=== PATIENT | male | born 1935 | race Caucasian/White ===

== ENCOUNTER 2018-05-04 11:08 | Inpatient (IN) | payer OTHER ==
[~2018-05-04] VITALS: Ht 160 cm; Wt 85.3 kg
[~2018-05-04 11:08] MED LIST: CARV3.12 PO; DABI150C PO; DIGO0.122 PO; DOCU-299 PO; FURO10SO IVP; MAG400 PO; POTA20TE62 PO
--- NOTE | 2018-05-04 11:17 | NUR ---
PATIENT AMBULATED TO BED 9 AT THIS TIME.
[2018-05-04 11:20] VITALS: BP 103/49
--- NOTE | 2018-05-04 11:29 | NUR ---
PATIENT PRESENTS TO ED WITH accompanied by spouse c/o lower back pain coughing spells moist productive cough fatigue headache . DENIES N/V/D; SKIN IS PINK/WARM/DRY; AAOX4 WITH EVEN AND STEADY GAIT; LUNGS CLEAR BL; HR EVEN AND REGULAR;PATIENT STATES PAIN OF 8/10 AT THIS TIME; VSS; PATIENT POSITIONED FOR COMFORT; HOB ELEVATED; BEDRAILS UP X2; BED DOWN. ER MD MADE AWARE OF PT STATUS.
[2018-05-04] MEDS ORDERED: NACL 0.9% 500 ML IV SCH (11:47)
--- NOTE | 2018-05-04 11:55 | NUR ---
X-Ray at bedside.
[2018-05-04 12:02] LABS: APPEARANCE,URINE HAZY (CLEAR); BILIRUBIN,URINE NEGATIVE (NEGATIVE); BLOOD, URINE 3+ (NEGATIVE); COLOR,URINE ORANGE (YELLOW); LEUKOCYTE ESTERASE ,URINE 3+ (NEGATIVE); NITRITE, URINE POSITIVE (NEGATIVE); UGLUCOSE TRACE (NEGATIVE)
--- NOTE | 2018-05-04 12:06 | NUR ---
influenza swab collected
[2018-05-04 12:10] LABS: WBC,URINE 16-25 (MOD) /HPF (0-5)
[2018-05-04 12:18] LABS: BASOPHILS % (AUTO) 0.6 % (0.0-2.0); EOSINOPHILS % (AUTO) 0.6 % (0.0-4.0); HEMATOCRIT 40.7 % (36-52); HEMOGLOBIN 13.3 g/dL (12.0-18.0); LYMPHOCYTES # (AUTO) 0.5 K/uL (2.0-11.5); LYMPHOCYTES % (AUTO) 8.4 % (20.5-51.1); MEAN CORPUSCULAR HEMOGLOBIN 29 pg (27-31); MEAN CORPUSCULAR HGB CONC 33 g/dL (33-37); MEAN CORPUSCULAR VOLUME 89.3 fL (80-94); MONOCYTES # (AUTO) 0.7 K/uL (0.8-1.0); MONOCYTES % (AUTO) 10.6 % (1.7-9.3); NEUTROPHILS % (AUTO) 79.8 % (42.2-75.2); PLATELET COUNT (AUTO) 106 K/uL (140-450); RED BLOOD CELL COUNT(AUTO) 4.56 MIL/uL (4.20-6.10); RED CELL DISTRIBUTION WIDTH 13.7 % (11.6-13.7); WHITE BLOOD COUNT (AUTO) 6.3 K/uL (4.8-10.8)
[2018-05-04 12:31] LABS: PROTHROMBIN TIME 10.4 secs (10.8-13.4)
[2018-05-04 12:34] LABS: ALBUMIN 2.8 g/dL (3.4-5.0); ANION GAP 9.9 (8-16); ASPARTATE AMINOTRANSFERASE 23 U/L (15-37); CARBON DIOXIDE 27.6 mmol/L (21-32); CHLORIDE 102 mmol/L (98-107); CREATININE 1.4 mg/dL (0.7-1.3); GLUCOSE 111 mg/dL (74-106); POTASSIUM 3.5 mmol/L (3.5-5.1); SODIUM SERUM 136 mmol/L (136-145); TOTAL BILIRUBIN 0.9 mg/dL (0.0-1.0); UREA NITROGEN, BLOOD 28 mg/dL (7-18)
[2018-05-04] MEDS ORDERED: NACL 0.9% 500 ML IV ONE (13:20)
[2018-05-04] MEDS ORDERED: cefTRIAXone 1,000 MG VIAL ONE (13:41)
[2018-05-04] MEDS ORDERED: ALBUTEROL 0.083% 2.5 MG/3 ML NEBU INH ONE ×2 (15:35→17:10)
[2018-05-04] MEDS ORDERED: IPRATROPIUM 0.02% 0.5 MG/2.5 ML NEBU INH ONE (15:35)
[2018-05-04] MEDS ORDERED: methylPREDNISolone SS 125 MG/2 ML VIAL IVP ONE (15:35)
[2018-05-04] MEDS ORDERED: METOPROLOL 5 MG/5 ML VIAL IVP ONE ×2 (16:10→16:55)
[2018-05-04] MEDS ORDERED: METOPROLOL 5 MG/5 ML VIAL ONE (16:21)
[2018-05-04] MEDS ORDERED: METOPROLOL 50 MG TAB PO ONE (16:55)
[2018-05-04] MEDS ORDERED: DOCUSATE SODIUM 100 MG GELCAP PO PRN (17:30)
[2018-05-04] MEDS ORDERED: DILTIAZEM 25 MG/5 ML VIAL IVP PRN (17:30)
[2018-05-04] MEDS ORDERED: HYDROcodone/APAP 5/325 MG 1 TAB TAB PO PRN (17:30)
[2018-05-04] MEDS ORDERED: ONDANSETRON 4 MG/2 ML VIAL IM/IVP PRN (17:30)
[2018-05-04] MEDS ORDERED: ACETAMINOPHEN 325 MG TAB PO PRN (17:30)
--- NOTE | 2018-05-04 17:40 | NUR ---
2ND METOPROLOL HELD 2 TO CURRENT B/P 117/59 HR 117; BREATHING TX COMPLETED <15mins. Addendum: 05/04/18 at 1746 by MEDGIN 2nd ivp metoprolol held due to current vitals; notified
--- NOTE | 2018-05-04 18:15 | NUR ---
RECEIVED REPORT FROM PM NURSE FROM ER NURSE AT BEDSIDE. PT ADMITTED WITH DX OF AFIB, HTN. HAS LEFT LEG WOUND. VS NOTED T 99.4. O2 95% ON O2 2LPM. HR 58, RR 20. BP 122/66. PT DENIES ANY PAIN AT THIS TIME. MRSA NARES SWAB COLLECTED AND SENT TO LAB. PT IS AMBULATORY TO RESTROOM. PT HAS INTERMITTENT COUGH. MD AT BED-SIDE , TALKING TO MD. CALL LIGHT WITHIN REACH. INFORMED TO USE CALL LIGHT FOR ANY HELP. WILL CONTINUE TO MONITOR PT.
[2018-05-04 18:32] LABS: MAGNESIUM 1.2 mg/dL (1.8-2.4); PHOSPHORUS 2.1 mg/dL (2.5-4.9); THYROID STIMULATING HORMONE 2.42 uIU/mL (0.34-3.74)
[2018-05-04 19:12] LABS: BARBITURATE, URINE NEG. ng/ml (NEG <=200); BENZODIAZEPINE, URINE NEG. ng/mL (NEG <=200); CANNABINOID, URINE NEG. ng/mL (NEG <=50); COCAINE, URINE NEG. ng/mL (NEG <=300); OPIATE, URINE NEG. ng/mL (NEG <=2000); PHENCYCLIDINE SCREEN,URINE NEG. ng/mL (NEG <=25)
--- NOTE | 2018-05-04 19:35 | NUR ---
ENDORSED PT TO PM NURSE AT BEDSIDE. PT IN STABLE CONDITION.
--- NOTE | 2018-05-04 19:36 | NUR ---
REPORT RECEIVED FROM AM NURSE AT BEDSIDE. PT IN STABLE CONDITION. AAOX4. INTRODUCED SELF TO PT. PT IS YI SPEAKING ONLY. BOARD UPDATED. NO COMPLAINTS OF PAIN. NO SOB. ON 2L O2 VIA NC. AFEBRILE. IV SITE L AC 20G RUNNING NS@60ML/HR PATENT AND INTACT. SKIN WARM, DRY, AND NOT INTACT WITH 2 LEFT LEG ULCERS. BED LOCKED IN LOW POSITION. CALL BIRCH WITHIN REACH. SAFETY PRECAUTIONS IN PLACE. ALL NEEDS MET AT THIS TIME.
[2018-05-04] MEDS: NACL 0.9% 1,000 ML IV SCH (19:53)
[2018-05-04 20:00] VITALS: BP 115/57
[2018-05-04] MEDS ORDERED: SODIUM PHOS / POTASSIUM PHOS 1 PKT PDR PO SCH (20:00)
--- NOTE | 2018-05-04 20:09 | NUR ---
NEUTROPHOS GIVEN PO. PT TOLERATED WELL.
--- NOTE | 2018-05-04 20:56 | NUR ---
HEPARIN GIVEN SUBQ. PT TOLERATED WELL. MAG HUNG FOR MAG LEVEL OF 1.2.
[2018-05-04] MEDS ORDERED: MAG SULF 2000 MG/WATER PREMIX 50 ML IV ONE (21:00)
--- NOTE | 2018-05-04 23:10 | NUR ---
PT SLEEPING BUT AROUSABLE. VS STABLE. NO S/S OF DISTRESS NOTED. WILL CONTINUE TO MONITOR.
[2018-05-04] MEDS ORDERED: PNEUMOCOCCAL VACCINE 23 MCG/0.5 ML VIAL IMVAC SCH (23:20)
[2018-05-04] MEDS ORDERED: INFLUENZA VIRUS VACCINE QUAD 0.5 ML SYR IMVAC PRN (23:20)
[2018-05-05] VITALS: BP 110/60
--- NOTE | 2018-05-05 01:15 | NUR ---
PT SLEEPING COMFORTABLY BUT AROUSABLE. NO S/S OF DISTRESS NOTED. BREATHING EVEN, UNLABORED, AND WNL. WILL CONTINUE TO MONITOR.
[2018-05-05] MEDS: NACL 0.9% 1,000 ML IV SCH (03:00)
--- NOTE | 2018-05-05 03:45 | NUR ---
PT SLEEPING COMFORTABLY SUPINE BUT AROUSABLE. NO S/S OF DISTRESS NOTED. BREATHING EVEN, UNLABORED, AND WNL. WILL CONTINUE TO MONITOR.
[2018-05-05 04:00] VITALS: BP 114/59
--- NOTE | 2018-05-05 05:20 | NUR ---
PT AWAKE IN BED WATCHING TV. BREATHING EVEN, UNLABORED, AND WNL. WILL CONTINUE TO MONITOR. NO S/S OF DISTRESS NOTED.
[2018-05-05 06:13] LABS: BASOPHILS % (AUTO) 0.1 % (0.0-2.0); HEMATOCRIT 39.5 % (36-52); HEMOGLOBIN 13.1 g/dL (12.0-18.0); LYMPHOCYTES # (AUTO) 0.4 K/uL (2.0-11.5); LYMPHOCYTES % (AUTO) 9.6 % (20.5-51.1); MEAN CORPUSCULAR HEMOGLOBIN 30 pg (27-31); MEAN CORPUSCULAR HGB CONC 33 g/dL (33-37); MEAN CORPUSCULAR VOLUME 89.5 fL (80-94); MONOCYTES # (AUTO) 0.2 K/uL (0.8-1.0); MONOCYTES % (AUTO) 4.6 % (1.7-9.3); NEUTROPHILS # (AUTO) 3.8 K/uL (1.8-7.7); NEUTROPHILS % (AUTO) 85.7 % (42.2-75.2); PLATELET COUNT (AUTO) 111 K/uL (140-450); RED BLOOD CELL COUNT(AUTO) 4.42 MIL/uL (4.20-6.10); RED CELL DISTRIBUTION WIDTH 13.8 % (11.6-13.7); WHITE BLOOD COUNT (AUTO) 4.5 K/uL (4.8-10.8)
[2018-05-05 06:28] LABS: CARBON DIOXIDE 28.9 mmol/L (21-32); CHLORIDE 105 mmol/L (98-107); CREATININE 1.1 mg/dL (0.7-1.3); GLUCOSE 152 mg/dL (74-106); POTASSIUM 3.9 mmol/L (3.5-5.1); SODIUM SERUM 139 mmol/L (136-145); UREA NITROGEN, BLOOD 23 mg/dL (7-18)
[2018-05-05 06:40] LABS: MAGNESIUM 2.5 mg/dL (1.8-2.4); PHOSPHORUS 3.5 mg/dL (2.5-4.9)
--- NOTE | 2018-05-05 07:30 | NUR ---
RECEIVED PATIENT REPORT AT BEDSIDE. PATIENT AWAKE,ALERT AND ORIENTED. NO S/S OF DISTRESS. PT ON TELE MONITORING. FALL PRECAUTIONS IN PLACE. WILL CONTINUE TO MONITOR
--- NOTE | 2018-05-05 07:35 | NUR ---
REPORT GIVEN TO AM NURSE AT BEDSIDE. PT IN STABLE CONDITION.
[2018-05-05 08:00] VITALS: BP 113/68
--- NOTE | 2018-05-05 08:24 | NUR ---
PATIENT HAS BEEN SCREENED AND CATEGORIZED HIGH NUTRITION RISK. PATIENT WILL BE SEEN WITHIN 1-2 DAYS OF ADMISSION. 05/05/18-05/06/[address]
[2018-05-05] MEDS ORDERED: METOPROLOL 25 MG TAB PO SCH (09:00)
[2018-05-05] MEDS: LACTOBACILLUS RHAMNOSUS GG 1 EACH CAP PO SCH (09:55)
--- NOTE | 2018-05-05 10:15 | NUR ---
WOUND CARE EVALUATION NOTE: REASON FOR EVALUATION: LEFT LOWER EXTREMITY WOUNDS PT. ADMITTED TO [facility] WITH CHRONIC OPEN WOUND TO LLE. PT IS AWAKE. SKIN IS WARM AND DRY, BLE FEW HAIR GROWTH, NO EDEMA. DORSAL PEDAL PULSES PRESENT AND NORMAL. CAPILLARY REFILLED < 2 SEC. X 10 TOES.PLAN OF CARE DISCUSSED WITH PRIMARY RN. AND PT. PT VERBALIZES UNDERSTANDING INTEGUMENTARY: -BLE XEROSIS -LLE VENOUS STASIS ULCER MULTIPLE FULL THICKNESS SKIN LOSS WITH LARGEST 3.5X3X0.5CM WOUND BED 100% GRANULATING TISSUE, OTTONIEL-WOUNDS WITH MULTIPLE PARTIAL THICKNESS SKIN LOSS SMALL AMOUNT SEROUS DRAINAGE, NO ERYTHEMA, NO ODOR RECOMMENDATIONS: -APPLY HYDRAGUARD TO BILATERAL LOWER EXTREMITIES BIDWC AND LEAVE IT OPEN TO AIR -CLEANSE LLE WOUNDS WITH WOUND CLEANSING SOLUTION AND APPLY XEROFORM DRESSING AND 4X4 ,WRAP WITH KERLIX ROLLS AND SECURE WITH TAPE QM-W-F PRN IF SOILING -OFFLOAD BILATERAL HEELS BY PLACING PILLOWS UNDER CALVES UNLESS OTHERWISE CONTRAINDICATED -PRESSURE REDISTRIBUTION SURFACE THERAPY -TURN AND REPOSITION Q2H, OFFLOAD SACRALCOCCYX AND BUTTOCKS BY TURNING RIGHT AND LEFT -CONTINUE TO FOLLOW RD RECOMMENDATIONS -PLEASE DISCHARGE PT WITH 2 WEEKS WOUND CARES SUPPLY AND PT. TO FOLLOW UP WITH PRIMARY CARE PROVIDER IN 2 WEEKS ALL ABOVE RECOMMENDATIONS DISCUSSED WITH PRIMARY RN. PLEASE CONTACT WOUND CARE NURSE FOR ANY QUESTION AND CHANGE OF WOUND CONDITION.
[2018-05-05 12:00] VITALS: BP 108/54
--- NOTE | 2018-05-05 14:48 | NUR ---
ECHO AT BEDSIDE Addendum: 05/05/18 at 1449 by Bin Rubio RN CORRECT TIME: 1400
--- NOTE | 2018-05-05 15:34 | NUR ---
05/05/18 RD INITIAL ASSESSMENT COMPLETED PLEASE REFER TO NUTRITION ASSESSMENT UNDER CARE ACTIVITY FOR ESTIMATED NUTRITIONAL NEEDS. 1. CONTINUE CARDIAC DIET TOLERATED 2. RECOMMEND MULTIVITAMIN QD WITH VITAMIN C [address] PROVIDED NUTRITION EDUCATION ON HEART HEALTHY DIET 4. RD TO FOLLOW-UP 3-5 DAYS, MODERATE RISK ALLAN PFEIFFER RD
[2018-05-05 16:00] VITALS: BP 119/53
--- NOTE | 2018-05-05 19:30 | NUR ---
PATIENT REPORT GIVEN AT BEDSIDE. PATIENT ENDORSED IN STABLE CONDITION
--- NOTE | 2018-05-05 19:31 | NUR ---
RECEIVED REPORT FROM DAY SHIFT NURSE AMIRA-RN AT BEDSIDE. PT AOX4- RWANDAN SPEAKING, ON ROOM AIR WITH LEFT AC #20G RUNNING NS @60ML/HR. PT RESTING IN BED NO S/S OF RESPIRATORY DISTRESS OR DISCOMFORT NOTED AT THIS TIME. DISCUSSED PLAN OF CARE AND PT VERBALIZED UNDERSTANDING. BED IN LOWEST POSITION, BED BREAKS ON, BOTH SIDE RAILS UP AND FALL PRECAUTIONS IN PLACE. BEDSIDE TABLE AND CALL LIGHT ARE WITHIN REACH. WILL CONTINUE TO MONITOR.
[2018-05-05 20:00] VITALS: BP 101/55
--- NOTE | 2018-05-05 20:00 | NUR ---
VITAL SIGNS TAKEN AND TOLERATED WELL. LOW BP NOTED 101/55. NO S/S OF RESPIRATORY DISTRESS OR DISCOMFORT NOTED AT THIS TIME. WILL CONTINUE TO MONITOR.
--- NOTE | 2018-05-05 21:38 | NUR ---
SCHEDULED MEDICATION HEPARIN GIVEN AND TOLERATED WELL. LOPRESSOR NOT GIVEN DUE TO LOW BP. NO S/S OF RESPIRATORY DISTRESS OR DISCOMFORT NOTED AT THIS TIME. WILL CONTINUE TO MONITOR.
--- NOTE | 2018-05-05 23:00 | NUR ---
PT SLEEPING IN BED. NO S/S OF RESPIRATORY DISTRESS OR DISCOMFORT NOTED AT THIS TIME. WILL CONTINUE TO MONITOR.
[2018-05-06] VITALS: BP 127/53
--- NOTE | 2018-05-06 | NUR ---
VITAL SIGNS TAKEN AND TOLERATED WELL. NO S/S OF RESPIRATORY DISTRESS OR DISCOMFORT NOTED AT THIS TIME. WILL CONTINUE TO MONITOR.
--- NOTE | 2018-05-06 02:00 | NUR ---
PT RESTING IN BED. NO S/S OF RESPIRATORY DISTRESS OR DISCOMFORT NOTED AT THIS TIME. WILL CONTINUE TO MONITOR.
[2018-05-06] MEDS: NACL 0.9% 1,000 ML IV SCH (02:43)
[2018-05-06 04:00] VITALS: BP 123/78
--- NOTE | 2018-05-06 04:00 | NUR ---
VITAL SIGNS TAKEN AND TOLERATED WELL. NO S/S OF RESPIRATORY DISTRESS OR DISCOMFORT NOTED AT THIS TIME. WILL CONTINUE TO MONITOR.
--- NOTE | 2018-05-06 06:00 | NUR ---
PT RESTING IN BED. NO S/S OF RESPIRATORY DISTRESS OR DISCOMFORT NOTED AT THIS TIME. WILL CONTINUE TO MONITOR.
[2018-05-06] MEDS ORDERED: APIX2.5 PO (06:13)
[2018-05-06] MEDS ORDERED: METO50TE2 PO (06:13)
[2018-05-06 06:55] LABS: BASOPHILS % (AUTO) 0.2 % (0.0-2.0); EOSINOPHILS # (AUTO) 0.1 K/uL (0-0.4); HEMATOCRIT 39.8 % (36-52); HEMOGLOBIN 12.9 g/dL (12.0-18.0); LYMPHOCYTES # (AUTO) 1.2 K/uL (2.0-11.5); LYMPHOCYTES % (AUTO) 11.1 % (20.5-51.1); MEAN CORPUSCULAR HEMOGLOBIN 29 pg (27-31); MEAN CORPUSCULAR HGB CONC 33 g/dL (33-37); MEAN CORPUSCULAR VOLUME 89.5 fL (80-94); MONOCYTES # (AUTO) 1.4 K/uL (0.8-1.0); MONOCYTES % (AUTO) 12.8 % (1.7-9.3); NEUTROPHILS # (AUTO) 8.1 K/uL (1.8-7.7); NEUTROPHILS % (AUTO) 74.9 % (42.2-75.2); PLATELET COUNT (AUTO) 128 K/uL (140-450); RED BLOOD CELL COUNT(AUTO) 4.44 MIL/uL (4.20-6.10); RED CELL DISTRIBUTION WIDTH 13.9 % (11.6-13.7); WHITE BLOOD COUNT (AUTO) 10.9 K/uL (4.8-10.8)
--- NOTE | 2018-05-06 07:20 | NUR ---
RECEIVED REPORT FROM PIPE FITTER WELDING NURSE RN AT BEDSIDE. PT AAOX4, FAROESE SPEAKING, NO S/S OF ACUTE DISTRESS ON ROOM AIR. IV CATH TO LEFT AC #20G RUNNING NS AT 60ML/HR, PATENT AND ASYMPTOMATIC. DISCUSSED PLAN OF CARE AND PT VERBALIZED UNDERSTANDING. DRESSING TO LEFT LEG DRY AND INTACT. BED IN LOWEST POSITION, BED BREAKS ON, BOTH SIDE RAILS UP. BEDSIDE TABLE AND CALL LIGHT ARE WITHIN REACH. WILL CONTINUE TO MONITOR.
--- NOTE | 2018-05-06 07:29 | NUR ---
ENDORSED PT CARE TO DAY SHIFT NURSE RENAE FOR CONTINUITY OF CARE.
[2018-05-06 07:36] LABS: MAGNESIUM 2.1 mg/dL (1.8-2.4); PHOSPHORUS 2.7 mg/dL (2.5-4.9)
[2018-05-06 08:00] VITALS: BP 126/57
[2018-05-06] MEDS ORDERED: HYDRAGUARD CREAM TP SCH (08:00)
[2018-05-06 08:11] LABS: ANION GAP 9.8 (8-16); CARBON DIOXIDE 29.1 mmol/L (21-32); CHLORIDE 108 mmol/L (98-107); CREATININE 1.1 mg/dL (0.7-1.3); GLUCOSE 91 mg/dL (74-106); POTASSIUM 3.9 mmol/L (3.5-5.1); SODIUM SERUM 143 mmol/L (136-145); UREA NITROGEN, BLOOD 29 mg/dL (7-18)
[2018-05-06] MEDS ORDERED: APIXABAN 2.5 MG TAB PO SCH (09:00)
[2018-05-06] MEDS ORDERED: METOPROLOL SUCCINATE 50 MG TABER PO SCH (09:00)
[2018-05-06] MEDS: LACTOBACILLUS RHAMNOSUS GG 1 EACH CAP PO SCH (09:24)
--- NOTE | 2018-05-06 10:00 | NUR ---
MEDICATIONS GIVEN, KNITTING MACHINE OPERATOR HELPER USED #[id number]. PT VERBALIZED UNDERSTANDING TO THE PURPOSE OF THE MEDICATIONS AND SIDE EFFECTS.
--- NOTE | 2018-05-06 10:50 | NUR ---
MADE DR BRIAN AWARE THAT WBC TODAY IS 10.9 INCREASED FROM 4.5 YESTERDAY. ASKED IF PT WILL STILL BE DC'D TODAY. DR BRIAN SAID YES.
[2018-05-06] MEDS ORDERED: SULF-58 PO (10:52)
[2018-05-06] MEDS ORDERED: BENZ-196 PO (10:52)
[2018-05-06] MEDS ORDERED: LACT10CA1 PO (10:52)
[2018-05-06 12:00] VITALS: BP 123/66
--- NOTE | 2018-05-06 14:30 | NUR ---
PT DISCHARGED PER MD ORDER. DISCHARGE INSTRUCTIONS AND MEDICATION TEACHING GIVEN. OFFERED CARD TABLE ATTENDANT PHONE, PT PREFER TO USE HIS FRIEND ESTELLE TO TRANSLATE. PT LEFT WITH HIS PRESCRIPTION. 4 MORE DAY SUPPLIES OF BACTROBAN AND CHLORHEXIDINE WIPES GIVEN. 1 WK DRESSING SUPPLIES FOR LEFT LEG GIVEN. PT DRESSED HIMSELF. DC'D IV, TIP INTACT, PRESSURE APPLIED. DC'D TELE AND WRIST BAND. PT LEFT WITH HIS LITZY AND FRIENDS, PT WAS WHEELED BY DIMENSIONAL INTEGRATION ENGINEER.
[2018-05-06] MEDS ORDERED: CHLORHEXADINE GLUC 2% CLOTH TP SCH (15:00)
[2018-05-06] MEDS ORDERED: MUPIROCIN CA NASAL 2% 1GM TUBE NS SCH (15:00)
== END 2018-05-06 14:30 | disposition home or self-care (01) | DRG 682 ==
LOC: MED 11:08 → MTU 11:17
PROVIDERS: ADMIT General Practice; ATTEND General Practice
PROC: 3E02340 Introduction of Influenza Vaccine into Muscle, Percutaneous Approach (ICD-10-PCS; principal; 2018-05-04)
PROC: 3E0234Z Introduction of Serum, Toxoid and Vaccine into Muscle, Percutaneous Approach (ICD-10-PCS; 2018-05-04)
DX: N17.0 Acute kidney failure with tubular necrosis (principal); E43 Unspecified severe protein-calorie malnutrition; R65.11 Systemic inflammatory response syndrome (SIRS) of non-infectious origin with acute organ dysfunction; I50.43 Acute on chronic combined systolic (congestive) and diastolic (congestive) heart failure; N39.0 Urinary tract infection, site not specified; L97.929 Non-pressure chronic ulcer of unspecified part of left lower leg with unspecified severity; I11.0 Hypertensive heart disease with heart failure; I48.91 Unspecified atrial fibrillation; Z68.33 Body mass index [BMI] 33.0-33.9, adult; L98.499 Non-pressure chronic ulcer of skin of other sites with unspecified severity; Z90.49 Acquired absence of other specified parts of digestive tract; E83.42 Hypomagnesemia; E83.39 Other disorders of phosphorus metabolism; I87.2 Venous insufficiency (chronic) (peripheral); E83.41 Hypermagnesemia; D72.829 Elevated white blood cell count, unspecified; T38.0X5A Adverse effect of glucocorticoids and synthetic analogues, initial encounter; Y92.89 Other specified places as the place of occurrence of the external cause; Z23 Encounter for immunization
CPT/HCPCS: 36415; 71045; 80048; 80053; 80305; 81001; 83036; 83605; 83690; 83735; 83880; 84100; 84134; 84443; 84484; 85025; 85610; 85730; 87040; 87081; 87086; 87186; 87804; 90732; 93005; 94640; 96361; 96365; 96375; 99285; J0696; J1644; J2930; J3475; J3490; J7030; J7060; J7613; J7644; Q0092